=== PATIENT | male | born 1995 | race Caucasian/White ===

== ENCOUNTER 2017-03-01 11:26 | Emergency (ER) | payer MEDICAID ==
[~2017-03-01] VITALS: Ht 177.8 cm; Wt 111.1 kg
[2017-03-01] MEDS ORDERED: ESOM40CA PO (11:39)
[2017-03-01 12:44] LABS: BASOPHILS # (AUTO) 0.1 K/uL (0.0-0.2); EOSINOPHILS # (AUTO) 0.2 K/uL (0.0-0.7); EOSINOPHILS % (AUTO) 2.8 % (0.0-7.0); HEMOGLOBIN 15.1 g/dL (14.0-18.0); LYMPHOCYTES # (AUTO) 2.7 K/uL (0.8-4.8); LYMPHOCYTES % (AUTO) 31.8 % (20.5-51.5); MEAN CORPUSCULAR HEMOGLOBIN 27.2 uug (27.0-31.0); MEAN CORPUSCULAR HGB CONC 33 g/dL (32.0-37.0); MEAN CORPUSCULAR VOLUME 82.6 fL (82.0-92.0); MONOCYTES # (AUTO) 0.6 K/uL (0.1-1.30); NEUTROPHILS % (AUTO) 57.4 % (38.5-71.5); PLATELET COUNT (AUTO) 223 K/uL (150-450); RED BLOOD CELL COUNT(AUTO) 5.57 MIL/uL (4.70-6.10); RED CELL DISTRIBUTION WIDTH 12.7 % (11.5-14.5); WHITE BLOOD COUNT (AUTO) 8.6 K/uL (4.0-11.2)
[2017-03-01 12:52] LABS: CALCIUM 8.8 mg/dL (8.5-10.1); CREATININE 0.9 mg/dL (0.6-1.3); POTASSIUM 4.2 mmol/L (3.5-5.1)
[2017-03-01 12:57] LABS: BILIRUBIN,DIRECT 0.1 mg/dL (0.0-0.2); BILIRUBIN,TOTAL 0.3 mg/dL (0.2-1.0); TOTAL PROTEIN, SERUM 7.4 g/dL (6.4-8.2)
[2017-03-01 13:23] LABS: *BILIRUBIN,URIN NEGATIVE (NEGATIVE); *BLOOD, URINE NEGATIVE (NEGATIVE); *CLARITY,URINE CLEAR (CLEAR); *COLOR,URINE YELLOW (YELLOW); *KETONES,URINE NEGATIVE (NEGATIVE); *PROTEIN,URINE NEGATIVE (NEGATIVE); *UROBILINOGEN,URINE 0.2 E.U./dl (NORMAL); LEUKOCYTE ESTERASE ,URINE NEGATIVE (NEGATIVE); NITRITE, URINE NEGATIVE (NEGATIVE); PH,URINE 6.5 (5.0-8.0); UGLUCOSE NEGATIVE (NEGATIVE)
[2017-03-01 13:39] LABS: BACTERIA,URINE NONE SEEN /HPF (NONE SEEN); RBC,URINE 0-3 /HPF (0-3); SQUAMOUS EPITHELIAL CELL,UR MODERATE /HPF (NONE SEEN); WBC,URINE 0-3 /HPF (0-3)
--- NOTE | 2017-03-01 13:42 | NUR ---
MSE COMPLETED, PT D/C'D HOME, MONITOR SHOWED NSR, PO2=99% ON ROOM AIR. PT AMBULATED W/O DIFF/TOOK ALL BELONGINGS.
[2017-03-01 13:43] VITALS: BP 135/91
== END 2017-03-01 13:44 | disposition home or self-care (01) ==
LOC: ER 11:26
DX: K62.5 Hemorrhage of anus and rectum (principal); R10.13 Epigastric pain; R07.9 Chest pain, unspecified; K21.9 Gastro-esophageal reflux disease without esophagitis; K59.00 Constipation, unspecified; F17.200 Nicotine dependence, unspecified, uncomplicated; F19.10 Other psychoactive substance abuse, uncomplicated
CPT/HCPCS: 36415; 80048; 80076; 81001; 83690; 85025; 85730; 93005; 99285; A4663

== ENCOUNTER 2017-07-14 16:59 | Emergency (ER) | payer MEDICAID ==
[~2017-07-14] VITALS: Ht 175.3 cm; Wt 101.2 kg
[~2017-07-14 16:59] MED LIST: ESOM40CA PO
[2017-07-14 17:48] LABS: *BILIRUBIN,URIN NEGATIVE (NEGATIVE); *BLOOD, URINE NEGATIVE (NEGATIVE); *CLARITY,URINE CLEAR (CLEAR); *COLOR,URINE YELLOW (YELLOW); *KETONES,URINE NEGATIVE (NEGATIVE); *PROTEIN,URINE NEGATIVE (NEGATIVE); *UROBILINOGEN,URINE 0.2 E.U./dl (NORMAL); LEUKOCYTE ESTERASE ,URINE NEGATIVE (NEGATIVE); NITRITE, URINE NEGATIVE (NEGATIVE); PH,URINE 6.5 (5.0-8.0); UGLUCOSE NEGATIVE (NEGATIVE)
[2017-07-14 17:56] LABS: MUCUS,URINE FEW /LPF (0-FEW); SQUAMOUS EPITHELIAL CELL,UR MODERATE /HPF (NONE SEEN); WBC,URINE 0-3 /HPF (0-3)
--- NOTE | 2017-07-14 18:01 | NUR ---
mse complteted, aci given. pt ambulated w./o diff/took all belongings.
[2017-07-14 18:02] VITALS: BP 138/78
[2017-07-17 08:07] LABS: *GC NAA Negative (Negative); *TRIC.VAG. NAA Negative (Negative)
== END 2017-07-14 18:03 | disposition home or self-care (01) ==
LOC: ER 17:00
DX: R30.0 Dysuria (principal); F17.200 Nicotine dependence, unspecified, uncomplicated; K21.9 Gastro-esophageal reflux disease without esophagitis; Z90.49 Acquired absence of other specified parts of digestive tract
CPT/HCPCS: 87086; 87491; A4663

== ENCOUNTER 2017-09-09 00:13 | Emergency (ER) | payer MEDICAID ==
[~2017-09-09] VITALS: Ht 177.8 cm; Wt 105.2 kg
[2017-09-09 01:32] LABS: CREATININE 0.8 mg/dL (0.6-1.3); POTASSIUM 3.9 mmol/L (3.5-5.1)
[2017-09-09 01:37] LABS: BILIRUBIN,DIRECT 0.1 mg/dL (0.0-0.2); BILIRUBIN,TOTAL 0.5 mg/dL (0.2-1.0); TOTAL PROTEIN, SERUM 7.3 g/dL (6.4-8.2)
--- NOTE | 2017-09-09 03:00 | NUR ---
PATIENT IN ROOM SLEEPING WITH NO DISTRESS NOTED
[2017-09-09 04:16] LABS: *BILIRUBIN,URIN NEGATIVE (NEGATIVE); *BLOOD, URINE NEGATIVE (NEGATIVE); *CLARITY,URINE CLEAR (CLEAR); *COLOR,URINE DARK YELLOW (YELLOW); *KETONES,URINE 1+ (NEGATIVE); *PROTEIN,URINE 1+ (NEGATIVE); LEUKOCYTE ESTERASE ,URINE NEGATIVE (NEGATIVE); NITRITE, URINE NEGATIVE (NEGATIVE); UGLUCOSE NEGATIVE (NEGATIVE)
[2017-09-09 04:20] LABS: BACTERIA,URINE MODERATE /HPF (NONE SEEN); RBC,URINE 0-3 /HPF (0-3); SQUAMOUS EPITHELIAL CELL,UR FEW /HPF (NONE SEEN)
[2017-09-09 04:51] LABS: BASOPHILS % (AUTO) 0.3 % (0.0-2.0); EOSINOPHILS % (AUTO) 0.4 % (0.0-7.0); HEMATOCRIT 43.1 % (40-50); HEMOGLOBIN 14.1 G/DL (14.0-18.0); LYMPHOCYTES % (AUTO) 15.1 % (20.5-51.5); MEAN CORPUSCULAR HEMOGLOBIN 27.2 UUG (27.0-31.0); MEAN CORPUSCULAR HGB CONC 33 g/dL (32.0-37.0); MONOCYTES % (AUTO) 4.1 % (0.0-11.0); NEUTROPHILS % (AUTO) 80.1 % (38.5-71.5); PLATELET COUNT (AUTO) 213 K/UL (150-450); WHITE BLOOD COUNT (AUTO) 10.4 K/UL (4.0-11.2)
[2017-09-09 04:52] LABS: LYMPHOCYTES # (AUTO) 1.6 K/UL (0.8-4.8); MONOCYTES # (AUTO) 0.4 K/UL (0.1-1.30); NEUTROPHILS # (AUTO) 8.3 K/UL (1.8-8.9)
--- NOTE | 2017-09-09 06:00 | NUR ---
PATIENT STATES "I FEEL BETTER NOW."
--- NOTE | 2017-09-09 06:42 | NUR ---
IV removed. Catheter intact and site benign. Pressure and 4x4 gauze applied to site. No bleeding noted.
--- NOTE | 2017-09-09 06:47 | NUR ---
Patient discharged to home in stable conditon WITH MOTHER TAKING PATIENT HOME. Written and verbal after care instructions given. Patient verbalizes understanding of instructions. WALKED OUT OF ER WITH STEADY GAIT. NO DISTRESS NOTED
[2017-09-09 06:49] VITALS: BP 138/82
== END 2017-09-09 06:49 | disposition home or self-care (01) ==
LOC: ER 00:13
DX: R10.32 Left lower quadrant pain (principal); F17.200 Nicotine dependence, unspecified, uncomplicated; K21.9 Gastro-esophageal reflux disease without esophagitis; Z90.49 Acquired absence of other specified parts of digestive tract
CPT/HCPCS: 36415; 74020; 83690; 85025; A4663; C9113; J2270; J2405; J7030

== ENCOUNTER 2017-09-10 03:53 | Emergency (ER) | payer MEDICAID ==
[~2017-09-10] VITALS: Ht 177.8 cm; Wt 105.2 kg
--- NOTE | 2017-09-10 04:31 | NUR ---
Pt ambulated to room with steady gait. Pt was seen here yesterday for abd pain n/v/d. Pt returned today for worsening pain and vomiting. Pt sts he cant stop vomiting and is vomiting bloody mucous. Pt also sts he has urgency to have a bm but nothing comes out. Pt points to mid abd to epigastric area as to where the pain is. Pt appears pale and diaphortic. Pt seen by Dr. Adames. IV established, labs drawn and sent. Pt medicated for pain and vomiting, will monitor for effects of medication. Fluid bolus infusing freely to gravity. Pt resting in position of comfort for self, mother at bedside.
[2017-09-10 04:49] LABS: *BILIRUBIN,URIN NEGATIVE (NEGATIVE); *BLOOD, URINE NEGATIVE (NEGATIVE); *CLARITY,URINE CLEAR (CLEAR); *COLOR,URINE YELLOW (YELLOW); *KETONES,URINE TRACE (NEGATIVE); *PROTEIN,URINE NEGATIVE (NEGATIVE); LEUKOCYTE ESTERASE ,URINE NEGATIVE (NEGATIVE); NITRITE, URINE NEGATIVE (NEGATIVE); UGLUCOSE NEGATIVE (NEGATIVE)
[2017-09-10 04:54] LABS: BACTERIA,URINE NONE SEEN /HPF (NONE SEEN); BILIRUBIN,DIRECT 0.1 mg/dL (0.0-0.2); BILIRUBIN,TOTAL 0.5 mg/dL (0.2-1.0); RBC,URINE NONE SEEN /HPF (0-3); SQUAMOUS EPITHELIAL CELL,UR FEW /HPF (NONE SEEN); TOTAL PROTEIN, SERUM 7.3 g/dL (6.4-8.2); WBC,URINE 0-3 /HPF (0-3)
--- NOTE | 2017-09-10 05:00 | NUR ---
Pt sts pain improved and is currently tolerable. Pt resting in position of comfort for self. Fluid bolus cont infusing freely to gravity. Family remains at bedside.
[2017-09-10 05:15] LABS: BASOPHILS % (AUTO) 0.3 % (0.0-2.0); EOSINOPHILS # (AUTO) 0.1 K/uL (0.0-0.7); EOSINOPHILS % (AUTO) 1.1 % (0.0-7.0); HEMATOCRIT 42.1 % (36.7-47.1); HEMOGLOBIN 14.1 g/dL (12.5-16.3); LYMPHOCYTES # (AUTO) 2.2 K/uL (20.0-40.0); LYMPHOCYTES % (AUTO) 22.8 % (20.5-51.5); MEAN CORPUSCULAR HEMOGLOBIN 27.7 uug (23.8-33.4); MEAN CORPUSCULAR HGB CONC 34 g/dL (32.5-36.3); MEAN CORPUSCULAR VOLUME 82.6 fL (73.0-96.2); MONOCYTES # (AUTO) 0.6 K/uL (2.0-10.0); MONOCYTES % (AUTO) 6.1 % (0.0-11.0); NEUTROPHILS # (AUTO) 6.8 K/uL (1.8-8.9); NEUTROPHILS % (AUTO) 69.7 % (38.5-71.5); PLATELET COUNT (AUTO) 198 K/uL (152-348); WHITE BLOOD COUNT (AUTO) 9.7 K/uL (3.6-10.2)
--- NOTE | 2017-09-10 05:35 | NUR ---
Pt c/o increased pain and requested medication. Pt also started vomiting. Dr. Adames notified and pt medicated. Will monitor for effects of medication.
--- NOTE | 2017-09-10 05:51 | NUR ---
Yanna (fur storage clerk) called pt's insurance for accountable and spoke with Orly. Orly stated she will call and leave a message for the caseworker intake to call here concerning pt's transfer to [facility].
--- NOTE | 2017-09-10 06:09 | NUR ---
Pt resting in position of comfort for self with eyes closed. Resp even and unlabored. Pt easily woken and sts he is currently pain free. Pt's transfer to [facility] pending, awaiting call from Dr. Zelaya for a doc to doc. Then from there awaiting call back from Erasto (egg caser for pt's insurance) with placement information.
--- NOTE | 2017-09-10 06:20 | NUR ---
Dr. Zelaya called back and is speaking with Dr. Adames
--- NOTE | 2017-09-10 07:35 | NUR ---
Report given to EM Sosa. I relinquish care of pt at this time. Transfer to [facility] pending, awaiting call back with room assignment.
--- NOTE | 2017-09-10 07:38 | NUR ---
Patient will be tranferred to outside an outside facility per patient's insurance: [facility]: Dr Zelaya accepted the patient. Location: no bed or assigned nurse, pending callback from Erasto (pt's social insurance specialist) as 737- still no available bed or nurse at this time
--- NOTE | 2017-09-10 08:32 | NUR ---
Patient is resting comfortably on gurney with eyes closed. PATIENT IS PAIN FREE AT THIS TIME, still waiting for complete transfer information at this time
--- NOTE | 2017-09-10 10:41 | NUR ---
0745- 1st contact with patient, sleeping comfortable, easily arousable, denies any pains at this time. 0945- no acute change in condition seen, pending ambulance sweet pickle maker 1040- BLS ambulance is here, pt is AOX4, calm and breathing easily, no acute change in condition noted, abdominal pains are tolerable per patient at 3/10 pain level.
== END 2017-09-10 10:41 | disposition short-term general hospital (02) ==
LOC: ER 03:56
DX: R10.13 Epigastric pain (principal); R11.2 Nausea with vomiting, unspecified; K21.9 Gastro-esophageal reflux disease without esophagitis
CPT/HCPCS: 36415; 70030-TC; 71010; 83690; 85025; 85730; 93005; A4663; J1170; J2405; J2765; J7030

== ENCOUNTER 2018-05-20 20:00 | Emergency (ER) | payer MEDICAID, OTHER ==
[~2018-05-20] VITALS: Ht 177.8 cm; Wt 111.1 kg
--- NOTE | 2018-05-20 20:29 | NUR ---
Louis ibarra in ED - 05/20/[address] Adames at [facility] for MSE.
--- NOTE | 2018-05-20 21:40 | NUR ---
Dr. Adames at bedside for MSE.
[2018-05-20] MEDS ORDERED: LIDOCAINE HCL 1% 20 ML VIAL IJ ONE (22:00)
[2018-05-20] MEDS ORDERED: PIPERACILLIN SODIUM/TAZOBACTAM 3.375 G in IV DEXTROSE 5% 50 ML IV ONE (22:00)
[2018-05-20] MEDS ORDERED: diphenhydrAMINE 50 MG/1 ML VIAL IV ONE (22:00)
[2018-05-20] MEDS ORDERED: MORPHINE SULFATE 4 MG/1 ML DISP.SYRIN IV ONE (22:00)
[2018-05-20] MEDS ORDERED: LIDOCAINE HCL 1% 20 ML VIAL ONE (22:08)
[2018-05-20] MEDS ORDERED: diphenhydrAMINE 50 MG/1 ML VIAL ONE (22:09)
[2018-05-20] MEDS ORDERED: MORPHINE SULFATE 4 MG/1 ML DISP.SYRIN ONE (22:09)
[2018-05-20] MEDS ORDERED: PIPERACILLIN/TAZOBACTAM/D5W 50 ML IV ONE (22:10)
[2018-05-20] MEDS ORDERED: NEOMY/BACITRA/POLYMYXIN B OINT UD PACKET TP ONE (22:47)
--- NOTE | 2018-05-20 23:00 | NUR ---
IV removed. Catheter intact and site benign. Pressure and 4x4 gauze applied to site. No bleeding noted.
[2018-05-20 23:04] VITALS: BP 118/85
--- NOTE | 2018-05-20 23:05 | NUR ---
Patient discharged to home in stable conditon. Written and verbal after care instructions given. Patient verbalizes understanding of instructions. WALKED OUT OF ER WITH NO DISTRESS NOTED
== END 2018-05-20 23:06 | disposition home or self-care (01) ==
LOC: ER 20:05
DX: L05.01 Pilonidal cyst with abscess (principal); K21.9 Gastro-esophageal reflux disease without esophagitis; F17.210 Nicotine dependence, cigarettes, uncomplicated; Z90.49 Acquired absence of other specified parts of digestive tract
CPT/HCPCS: 10060; 96365; 96375; 99284; A4217; A4663; J1200; J2270; J2543; J3490

== ENCOUNTER 2021-01-25 07:21 | Emergency (ER) | payer MEDICAID ==
[~2021-01-25] VITALS: Ht 180.3 cm; Wt 113.4 kg
[2021-01-25 07:49] LABS: BASOPHILS % (AUTO) 0.4 % (0.0-2.0); EOSINOPHILS # (AUTO) 0.2 K/uL (0.0-0.7); EOSINOPHILS % (AUTO) 2.9 % (0.0-7.0); HEMATOCRIT 46.4 % (36.7-47.1); HEMOGLOBIN 15.5 g/dL (12.5-16.3); LYMPHOCYTES # (AUTO) 2.1 K/uL (20.0-40.0); LYMPHOCYTES % (AUTO) 29.2 % (20.5-51.5); MEAN CORPUSCULAR HEMOGLOBIN 27.6 uug (23.8-33.4); MEAN CORPUSCULAR HGB CONC 33 g/dL (32.5-36.3); MEAN CORPUSCULAR VOLUME 82.8 fL (73.0-96.2); MONOCYTES # (AUTO) 0.5 K/uL (2.0-10.0); MONOCYTES % (AUTO) 7.5 % (0.0-11.0); NEUTROPHILS # (AUTO) 4.3 K/uL (1.8-8.9); PLATELET COUNT (AUTO) 230 K/uL (152-348); WHITE BLOOD COUNT (AUTO) 7.2 K/uL (3.6-10.2)
[2021-01-25 07:58] LABS: CREATININE 0.9 mg/dL (0.6-1.3)
[2021-01-25 08:06] LABS: BILIRUBIN,DIRECT 0.2 mg/dL (0.0-0.2); BILIRUBIN,TOTAL 0.8 mg/dL (0.2-1.0); TOTAL PROTEIN, SERUM 7.8 g/dL (6.4-8.2)
--- NOTE | 2021-01-25 08:36 | NUR ---
Patient is resting comfortably on gurney, denies pains@this time, NAD, for disposition
--- NOTE | 2021-01-25 08:57 | NUR ---
Patient discharged to home in stable condition with brisk steady gait. Written and verbal after care instructions given to patient. Patient verbalized understanding and compliance of instructions. Stressed follow up with primary doctor & GI doctor as patient had scheduled or return to ER for worsening s/s. Patient said that he already has GI imaging scheduled for his chronic GI issues. Copies of all the tests' results were given to patient as well.
== END 2021-01-25 09:01 | disposition home or self-care (01) ==
LOC: ER 07:21
DX: K62.5 Hemorrhage of anus and rectum (principal); K21.9 Gastro-esophageal reflux disease without esophagitis
CPT/HCPCS: 36415; 83690; 85025; 85730; A4663

== ENCOUNTER 2021-09-02 10:00 | Emergency (ER) | payer BC, OTHER ==
[~2021-09-02] VITALS: Ht 177.8 cm; Wt 113.4 kg
[2021-09-02] MEDS ORDERED: ASPIRIN 81 MG TAB.CHEW PO ONE (10:15)
--- NOTE | 2021-09-02 10:17 | NUR ---
Pt refused ASA, states he took ASA 81mg x 2 tabs po this morning.
[2021-09-02 10:33] LABS: HEMATOCRIT 45.1 % (36.7-47.1); MEAN CORPUSCULAR HEMOGLOBIN 27.8 uug (23.8-33.4); MEAN CORPUSCULAR VOLUME 81.8 fL (73.0-96.2); PLATELET COUNT (AUTO) 240 K/uL (152-348)
[2021-09-02 10:40] LABS: CREATININE 0.8 mg/dL (0.6-1.3); POTASSIUM 4.2 mmol/L (3.5-5.1)
[2021-09-02] MEDS ORDERED: ASPIRIN 81 MG TAB.CHEW ONE (10:51)
[2021-09-02 10:53] LABS: BILIRUBIN,DIRECT 0.1 mg/dL (0.0-0.2); BILIRUBIN,TOTAL 0.6 mg/dL (0.2-1.0); TOTAL PROTEIN, SERUM 7.5 g/dL (6.4-8.2)
--- NOTE | 2021-09-02 14:23 | NUR ---
Patient discharged to home in stable condition. Written and verbal after care instructions given. Patient verbalizes understanding of instructions. Stressed follow up or return to ER for worsening s/s.PT SAYS FEELS BETTER, READY TO GO HOME. PT SAID WILL FOLLOW UP WITH FELTMAKER AND WEIGHER
[2021-09-02 14:24] VITALS: BP 121/79
== END 2021-09-02 14:27 | disposition home or self-care (01) ==
LOC: ER 10:00
DX: R07.9 Chest pain, unspecified (principal); Z83.3 Family history of diabetes mellitus; K21.9 Gastro-esophageal reflux disease without esophagitis; F17.200 Nicotine dependence, unspecified, uncomplicated
CPT/HCPCS: 36415; 70030-TC; 71045; 85025; 93005; A4663